=== PATIENT | female | born 1940 ===

== ENCOUNTER 2023-09-18 06:00 | Outpatient (RCR) | payer OTHER, SELFPAY | END 2023-09-25 23:59 | disposition home or self-care (01) | LOC: TPT 06:00 | PROVIDERS: Visit Provider Nurse Practitioner Family | DX: M25.572 Pain in left ankle and joints of left foot (principal); M25.562 Pain in left knee | CPT/HCPCS: 97110; 97140; 97162 ==

== ENCOUNTER 2023-09-26 06:00 | Outpatient (RCR) | payer MEDICARE, SELFPAY | END 2023-10-25 23:59 | disposition home or self-care (01) | LOC: TPT 06:00 | PROVIDERS: Visit Provider Nurse Practitioner Family | DX: M25.572 Pain in left ankle and joints of left foot (principal) | CPT/HCPCS: 97110; 97140 ==

== ENCOUNTER 2023-10-26 06:00 | Outpatient (RCR) | payer MEDICARE, SELFPAY | END 2023-11-25 23:59 | disposition home or self-care (01) | LOC: TPT 06:00 | PROVIDERS: Visit Provider Nurse Practitioner Family | DX: M25.572 Pain in left ankle and joints of left foot (principal) | CPT/HCPCS: 97110; 97140 ==

== ENCOUNTER 2023-11-26 06:00 | Outpatient (RCR) | payer MEDICARE, SELFPAY | END 2023-12-26 23:59 | disposition home or self-care (01) | LOC: TPT 06:00 | PROVIDERS: Visit Provider Nurse Practitioner Family | DX: M25.572 Pain in left ankle and joints of left foot (principal) | CPT/HCPCS: 97110; 97140 ==

== ENCOUNTER 2023-12-27 06:00 | Outpatient (RCR) | payer MEDICARE, SELFPAY | END 2024-01-24 23:59 | disposition home or self-care (01) | LOC: TPT 06:00 | PROVIDERS: Visit Provider Nurse Practitioner Family | DX: M25.572 Pain in left ankle and joints of left foot (principal) | CPT/HCPCS: 97110 ==

== ENCOUNTER 2024-01-25 06:00 | Outpatient (RCR) | payer MEDICARE, SELFPAY | END 2024-02-24 23:59 | disposition home or self-care (01) | LOC: TPT 06:00 | PROVIDERS: Visit Provider Nurse Practitioner Family | DX: M25.572 Pain in left ankle and joints of left foot (principal) | CPT/HCPCS: 97110 ==